=== PATIENT | male | born 1940 | race Caucasian/White ===

== ENCOUNTER → 2016-07-04 | Outpatient (CLI) | payer MEDICARE, MEDICAID ==
[2016-07-04 15:13] LABS: MEAN CORPUSCULAR HEMOGLOBIN 30.8 PG (26.0-34.0); MEAN CORPUSCULAR VOLUME 91 FL (80-100); MEAN PLATELET VOLUME 9.6 FL (6.0-9.5); PLATELET COUNT 161 10^3uL (150-450); WHITE BLOOD COUNT 4.15 10^3uL (4.0-11.0)
[2016-07-04 15:22] LABS: BAND NEUTROPHILS % 3 % (0-6); EOSINOPHILS % 1 % (0-4); LYMPHOCYTES # 0.7 #; MONOCYTES # 0.6 #; MONOCYTES % 15 % (3-11); RBC MORPH NORMAL (NORMAL); SEGMENTED NEUTROPHILS % 64 % (51-67); TOTAL CELLS COUNTED 100
[2016-07-04 15:25] LABS: ANION GAP 18.4 MEQ/L (3-15)
[2016-07-04 21:29] LABS: IRON 41 ug/dL (65-175); UNBOUND IRON CONTENT 290 ug/dl (126-382)
== END ==
LOC: LAB 14:54
PROVIDERS: ATTEND Family Medicine
DX: J06.9 Acute upper respiratory infection, unspecified (principal); D64.9 Anemia, unspecified
CPT/HCPCS: 36415; 80048; 83540; 83550; 85025; 86140

== ENCOUNTER → 2016-07-27 | Outpatient (CLI) | payer MEDICARE, MEDICAID ==
[2016-07-27 15:59] LABS: MEAN CORPUSCULAR HGB CONC 33.3 g/dL (31.0-37.0); MEAN CORPUSCULAR VOLUME 93 FL (80-100); MEAN PLATELET VOLUME 9.8 FL (6.0-9.5); PLATELET COUNT 228 10^3uL (150-450)
[2016-07-27 16:04] LABS: BASOPHILS % (AUTO) 1 % (0-2); EOSINOPHILS # (AUTO) 0.2 10^3uL; EOSINOPHILS % (AUTO) 3 % (0-4); LYMPHOCYTES # (AUTO) 2.2 X10^3; MONOCYTES # (AUTO) 0.6 X10^3; MONOCYTES % (AUTO) 9 % (3-11); NEUTROPHILS # (AUTO) 4.1 X10^3; NEUTROPHILS % (AUTO) 57 % (51-67)
== END ==
LOC: LAB 15:29
PROVIDERS: ATTEND Internal Medicine Hematology & Oncology
DX: D50.0 Iron deficiency anemia secondary to blood loss (chronic) (principal)
CPT/HCPCS: 36415; 83540; 85025